=== PATIENT | female | born 1945 | race Caucasian/White ===

== ENCOUNTER 2025-07-12 12:09 | Emergency (ER) | payer MEDICARE ==
[~2025-07-12] VITALS: Ht 157.5 cm; Wt 74.0 kg
[~2025-07-12 12:09] MED LIST: CARB1TAB36 PO; EZET10TA6 PO; FLUO-167 PO; HYDR25TA4 PO; METO50TA16 PO; NITR0.4T48 SL; PRAM0.129 PO; ROSU40TA89 PO; VALS80TA32 PO
[2025-07-12 12:14] VITALS: BP 127/94; PULSE 62; RESP 18; O2SAT 95
--- NOTE | 2025-07-12 12:51 | RADIOLOGY REPORT ---
CLINICAL INDICATION: fall with neck pain, RIGHT SHOULDER PAIN TECHNIQUE: Right DI SHOULDER, COMPLETE (MIN 2 VWS) Comparison: None FINDINGS/IMPRESSION: : There is no evidence of acute fracture or dislocation. Soft tissues are unremarkable.
--- NOTE | 2025-07-12 12:53 | RADIOLOGY REPORT ---
INDICATION: fall with neck pain TECHNIQUE: 6 views of the cervical spine were obtained. COMPARISON: None FINDINGS: The cervical spine is visualized from C1-C7. There is loss of the normal cervical lordosis which can be positional. No fractures or subluxations are identified. Multilevel degenerative changes of the spine Alignment appears unremarkable. Prevertebral soft tissues are within normal limits. IMPRESSION: No acute fracture or subluxation
--- NOTE | 2025-07-12 14:27 | Physician Documentation ---
History of Present Illness ~ Chief Complaint: Mechanical Fall Stated Complaint: FALL/HIGH BP Time Seen by MD: 13:24 HPI Patient is seen today with complaints of sustaining a ground level fall when she slipped to get in the shower and she fell onto her left side and left hip and side of her left knee onto the lip of the shower. Patient states her neck is actually with hurting the most today likely from whiplash. Patient denies any changes in bowel or bladder habits or saddle anesthesia or numbness or tingling of her upper or lower extremities. She has no other concern or complaint at this time. Tetanus within 5 Years?: No Medication Reconciliation Allergies: Coded Allergies: Sulfa (Sulfonamide Antibiotics) (Verified Allergy, Mild, ITCHING, CONFUSION, HAYFEVER, 07/12/25) Scheduled Carbidopa/Levodopa (Carbidopa-Levodopa 25-100 Tab), 1 TAB PO DAILY, (Reported) Ezetimibe (Zetia), 1 TABLET PO DAILY, (Reported) Fluoxetine HCl (Fluoxetine HCl), 1 CAP PO DAILY, (Reported) Hydrochlorothiazide (Hydrochlorothiazide), 1 TAB PO QAM, (Reported) Metoprolol Tartrate (Metoprolol Tartrate), 1 TAB PO Q12H, (Reported) Pramipexole Di-Hcl (Pramipexole Dihydrochloride), 2 TAB PO HS, (Reported) Rosuvastatin Calcium (Rosuvastatin Calcium), 1 TAB PO DAILY, (Reported) Valsartan (Valsartan), 1 TAB PO DAILY, (Reported) Scheduled PRN Nitroglycerin (Nitroglycerin), 0.4 MG SL Q15MIN PRN for chest pain Review of Systems Constitutional: Denies: chills, fever, weakness Eyes: Denies: pain, blurred vision ENT: Denies: ear pain, nose pain, throat pain, mouth pain Respiratory: Denies: cough, shortness of breath Cardiovascular: Denies: chest pain, palpitations Gastrointestinal: Denies: abdominal pain, nausea, vomiting Genitourinary: Denies: burning, dysuria Female Genitalia: Denies: vaginal discharge, pelvic pain Neurological: Denies: headache, dizziness Musculoskeletal: Denies: pain, swelling Integumentary: Denies: rash, lesions Allergic/Immunologic: Denies: hives, itching Hematologic/Lymphatic: Denies: no symptoms reported Psychiatric: Denies: depression, anxiety Physical Exam Vital Signs: Temperature: 97.3, Source: Temporal, Heart Rate: 62, Respiratory Rate: 18, BP: 127/94, Pulse Oximetry: 95, Weight: 74.000 Physical Exam General: Awake and Alert, no acute distress. HEENT: Conjunctiva pink, Sclera clear, Mucus Membranes moist. Neck: Supple without masses and tenderness. Resp: Unlabored. Lungs clear to auscultation bilaterally. Heart: Regular Rate and rhythm, normal S1 and S2 without murmur, rub or gallop. Musculoskeletal: Patient on exam does have ecchymosis of her left hip in the greater trochanter area as well as lateral aspect of the left knee. Patient has significant tenderness to palpation of the paraspinal muscles on the right side of the cervical spine and decreased range of motion of the cervical spine. Patient is neurovascularly intact distally of the bilateral upper and lower extremities. Motor function intact distally. Extremities: No cyanosis,clubbing or edema. Skin: Warm and Dry. Progress Results/Orders Results/Orders Orders - LOLITA MARSHALL PAC Shoulder, Complete (Min 2 Vws) (07/12/25 12:39) [facility] (07/12/25 12:39) Completed Orders - LOLITA MARSHALL PAC Shoulder, Complete (Min 2 Vws) (07/12/25 12:39) [facility] (07/12/25 12:39) Vital Signs 07/12/25 12:14 Temp 97.3 Pulse 62 Resp 18 B/P (MAP) 127/94 Pulse Ox 95 EKG/XRAY/CT/US/VASC/MRI Bone/Soft Tissue X-Ray (Spine) : Additional Comment Cervical spine x-ray interpreted by myself today shows straightening of the normal lordotic curve, no acute fracture or subluxation, bones in anatomic alignment. X-ray of the right shoulder interpreted by myself today shows no sign of acute fracture, bones in anatomic alignment, no osteolytic or blastic lesions. DIAGNOSTIC RADIOLOGY Patient: EDEN RICHMOND Medical Record: [id number] [facility] : 1945, Age: 80 Sex: Female Location: ER Patient Status: REG ER Service Date/Time: 07/12/251238 Ordering Physician: LOLITA MARSHALL PAC Exam: SHOULDER, COMPLETE (MIN 2 VWS) CLINICAL INDICATION: fall with neck pain, RIGHT SHOULDER PAIN TECHNIQUE: Right DI SHOULDER, COMPLETE (MIN 2 VWS) Comparison: None FINDINGS/IMPRESSION: : There is no evidence of acute fracture or dislocation. Soft tissues are unremarkable. Electronically Signed by:GRANT COLLINS MD Date & Time: 07/12/251248 Dictated by: GRANT COLLINS MD Dictation date and time: 07/12/251248 Primary Care Provider: NO PRIMARY CARE PROVIDER cc: LOLITA MARSHALL PAC ~ DIAGNOSTIC RADIOLOGY Patient: EDEN RICHMOND Medical Record: [id number] [facility] : 1945, Age: 80 Sex: Female Location: ER Patient Status: REG ER Service Date/Time: 07/12/251238 Ordering Physician: LOLITA MARSHALL PAC Exam: [facility] INDICATION: fall with neck pain TECHNIQUE: 6 views of the cervical spine were obtained. COMPARISON: None FINDINGS: The cervical spine is visualized from C1-C7. There is loss of the normal cervical lordosis which can be positional. No fractures or subluxations are identified. Multilevel degenerative changes of the spine Alignment appears unremarkable. Prevertebral soft tissues are within normal limits. IMPRESSION: No acute fracture or subluxation Electronically Signed by:GRANT COLLINS MD Date & Time: 07/12/25 125 Dictated by: GRANT COLLINS MD Dictation date and time: 07/12/25 1251 Primary Care Provider: NO PRIMARY CARE PROVIDER cc: LOLITA MARSHALL PAC ~ Medical Decision Making Findings Patient is seen today with complaints of sustaining a ground level fall when she slipped to get in the shower and she fell onto her left side and left hip and side of her left knee onto the lip of the shower. Patient states her neck is actually with hurting the most today likely from whiplash. Patient denies any changes in bowel or bladder habits or saddle anesthesia or numbness or tingling of her upper or lower extremities. She has no other concern or complaint at this time. Patient did have x-rays taken of the cervical spine and right shoulder that showed no sign of acute fracture. Patient was given prescription for methocarbamol 750 mg one tab 3 times a day as needed for muscle spasm of the neck, meloxicam 15 mg one tab by mouth once a day to be taken with food, as well as Barry 5/325 mg, one tab once a day to be taken at nighttime. Patient will follow up with primary care in 3-5 days if no better as needed sooner. Return to ED with any worsening, concerning or changing symptoms. Departure Disposition: 01 HOME / SELF CARE / HOMELESS Impression: Primary Impression: Whiplash injuries Qualified Codes: S13.4XXA - Sprain of ligaments of cervical spine, initial encounter Additional Impressions: Neck pain Shoulder pain Qualified Codes: M25.511 - Pain in right shoulder Condition: Improved Discharge Instructions: Fall Prevention in the Home, Adult, [id number] Additional Instructions: Patient did have x-rays taken of the cervical spine and right shoulder that showed no sign of acute fracture. Patient was given prescription for methocarbamol 750 mg one tab 3 times a day as needed for muscle spasm of the neck, meloxicam 15 mg one tab by mouth once a day to be taken with food, as well as Barry 5/325 mg, one tab once a day to be taken at nighttime. Patient will follow up with primary care in 3-5 days if no better as needed sooner. Return to ED with any worsening, concerning or changing symptoms. Referrals: NO PRIMARY CARE PROVIDER (PCP) Prescriptions Hydrocodone Bit/Acetaminophen 5/325 MG (Barry 5/325 MG) 5 Mg/325 Mg Tablet 1 TAB PO QDRHS PRN for pain for 7 Days, #7 TAB Prov: LOLITA MARSHALL 07/12/25 Acetaminophen (Tylenol 8 Hour) 650 Mg Tablet.er 1 TAB PO TID PRN PRN for abdominal cramps for 10 Days, #30 TAB 0 Refills NEEDED FOR PAIN Prov: LOLITA MARSHALL 07/12/25 Methocarbamol (Methocarbamol) 750 Mg Tablet 1 TAB PO Q8H for 15 Days, #45 TAB 0 Refills Prov: LOLITA MARSHALL 07/12/25 Meloxicam (Meloxicam) 15 Mg Tablet 1 TAB PO DAILY for 30 Days, #30 TAB 0 Refills Prov: LOLITA MARSHALL 07/12/25 Signature Scribe Signature: No scribe Attestation: No scribe LOLITA MARSHALL Jul 12, 2025 14:27
[2025-07-12] MEDS ORDERED: HYDR-3965 PO (14:29)
[2025-07-12] MEDS ORDERED: ACET-3174 PO (14:29)
[2025-07-12] MEDS ORDERED: MELO-102 PO (14:29)
[2025-07-12] MEDS ORDERED: METH-798 PO (14:29)
[2025-07-12 14:32] VITALS: TEMP 97.3
== END 2025-07-12 14:44 | disposition home or self-care (01) ==
LOC: ER 12:12
DX: S13.4XXA Sprain of ligaments of cervical spine, initial encounter (principal); M25.511 Pain in right shoulder; M54.2 Cervicalgia; Z88.2 Allergy status to sulfonamides; W01.0XXA Fall on same level from slipping, tripping and stumbling without subsequent striking against object, initial encounter; Y93.89 Activity, other specified; Y92.89 Other specified places as the place of occurrence of the external cause; Y99.8 Other external cause status
CPT/HCPCS: 72040; 73030; 99284